=== PATIENT | male | born 1960 | race Caucasian/White ===

== ENCOUNTER 2019-05-12 09:01 | Emergency (ER) | payer OTHER, SELFPAY ==
[2019-05-12 09:19] VITALS: BP 155/89; PULSE 77; RESP 16; TEMP 36.2; O2SAT 100; BMI 31.5
--- NOTE | 2019-05-12 09:47 | ED.HA ---
HPI - Headache General Chief Complaint: Headache Stated Complaint: headache on right caodaism area/nausea x2 days Time Seen by Provider: 05/12/19 09:32 Mode of arrival: Ambulatory Limitations: no limitations History of Present Illness HPI Narrative: 58-year-old male former smoker with a history of hypertension presents with a sudden onset right-sided headache for the past 2 days. He states it is worse with bright lights and loud noises. He denies any significant history of headaches but did have a subarachnoid hemorrhage about 20 years ago. Patient denies any recent injury. He has no neck pain and denies other neurologic symptoms such as trouble with speech, numbness, tingling or weakness. He does state that there is an episode of some blurred vision in the lower right quadrant of his vision in his right eye. MD Complaint: headache Onset (ago): day(s) Onset description: sudden Location: right Severity: moderate Quality: aching and throbbing Exacerbating factors: none, light and noise Associated symptoms: photophobia and vision loss Treatments prior to arrival: none Related Data Home Medications Medication Instructions Recorded Confirmed lisinopril 40 mg PO DAILY 05/12/19 05/12/19 Previous Rx's Medication Instructions Recorded prednisone 10 mg PO DAILY #40 tab 05/12/19 Allergies Allergy/AdvReac Type Severity Reaction Status Date / Time No Known Drug Allergies Allergy Verified 05/12/19 12:38 Review of Systems Constitutional Constitutional: Denies chills, Denies fatigue, Denies fever(s), Denies frequent falls, Reports headache(s), Denies lethargy and Denies weakness Eyes Eyes: Denies change in vision, Denies eye discharge, Denies irritation and Reports loss of vision ENT Ears, Nose, Mouth, and Throat: Denies change in voice, Denies dizziness, Reports headache(s), Denies neck pain, Denies sore throat and Denies throat swelling Cardiovascular Cardiovascular: Denies chest pain, Denies irregular heart rhythm, Denies lightheadedness, Denies palpitations, Denies dyspnea, Denies dyspnea on exertion and Denies orthopnea Respiratory Respiratory: Denies cough, Denies dyspnea, Denies dyspnea on exertion and Denies wheezing Gastrointestinal Gastrointestinal: Denies abdominal pain, Denies change in bowel habits, Denies diarrhea, Denies nausea and Denies vomiting Genitourinary Genitourinary: Denies hematuria, Denies flank pain, Denies urinary incontinence and Denies urinary urgency Musculoskeletal Musculoskeletal: Denies back pain, Denies muscle weakness, Denies neck pain, Denies numbness and Denies tingling Integumentary/Breasts Skin/Breast: Denies pruritus, Denies erythema, Denies rash and Denies wounds Neurologic Neurologic: Denies behavioral changes, Denies confusion, Denies dizziness, Denies frequent falls, Reports headache(s), Reports loss of vision, Denies numbness, Denies tingling and Denies weakness Psychiatric Psychiatric: Denies anxiety, Denies behavioral changes, Denies confusion, Denies depression, Denies homicidal ideation and Denies suicidal ideation Endocrine Endocrine: Denies fatigue, Denies flushing and Denies palpitations Hematologic/Lymphatic Hematologic/Lymphatic: Denies easy bruising Allergic/Immunologic Allergic/Immunologic: Denies urticaria, Denies throat swelling and Denies wheezing PFSH Social History Smoking Status: Former smoker Social History Smoking Status: Former smoker Exam Narrative Exam Narrative: GENERAL: [58] year old patient appears stated age. Well-nourished, well-developed patient, in mild distress. HEAD: Right caodaism tender to palpate Atraumatic. Normocephalic. EYES: Pupils equal round and reactive. Extraocular motions intact. No scleral icterus. No injection or drainage. Pressure with tonopen is 20mmHg ENT: Nose without bleeding, purulent drainage. Throat without erythema, tonsillar hypertrophy or exudate. Airway patent. NECK: Trachea midline. Non tender CARDIOVASCULAR: Regular rate and rhythm without murmurs, gallops, or rubs. RESPIRATORY: Clear to auscultation. Breath sounds equal bilaterally. No wheezes, rales, or rhonchi. GASTROINTESTINAL: Abdomen soft, non-tender, nondistended. EXTREMITIES: No edema or joint tenderness. BACK: Nontender without deformity or crepitance. No flank tenderness. NEURO: AOx3. SKIN: No rash or erythema of visible areas Initial Vital Signs Initial Vital Signs: Vital Signs Temperature 97.1 F L 05/12/19 09:19 Pulse Rate 77 05/12/19 09:19 Respiratory Rate 16 05/12/19 09:19 Blood Pressure 155/89 H 05/12/19 09:19 Pulse Oximetry 100 05/12/19 09:19 Course Orders Ordered: ED Orders 05/12/19 10:53 CT head/brain wo con Stat 05/12/19 11:00 Basic Metabolic Panel Stat C-Reactive Protein Quant Stat Complete Blood Count AUTO DIFF Stat Erythrocyte Sedimentation Rate Stat Discontinued Medications Dexamethasone (Decadron) 10 mg IV NOW ONE Stop: 05/12/19 10:54 Last Admin: 05/12/19 11:09 Dose: 10 mg Documented by: CHRIST Sodium Chloride (Normal Saline 0.9%) 1,000 mls @ 1,000 mls/hr IV BOLUS ONE Stop: 05/12/19 11:52 Last Infusion: 05/12/19 12:19 Dose: 0 mls/hr Documented by: Admin: 05/12/19 11:09 Dose: 1,000 mls/hr Documented by: CHRIST Prochlorperazine (Compazine) 10 mg IV NOW ONE Stop: 05/12/19 10:54 Last Admin: 05/12/19 11:09 Dose: 10 mg Documented by: CHRIST Proparacaine HCl (Parcaine 0.5% Ophth Racheal) 1 drops EYE-RIGHT NOW ONE Stop: 05/12/19 12:10 Last Admin: 05/12/19 12:33 Dose: 3 drop Documented by: CHRIST Reevaluation(s) Reevaluation #1: near complete resolution of symptoms after the above state therapies Consultations Consultation #1: call to Dr. Tillman regarding close follow up, he is happy to see the patient and requests that we send him right over. Consultation #2: call to Dr. Morales to discuss biopsy. He requests follow up with office Vital Signs Vital signs: Vital Signs - 8 hr 05/12/19 12:09 05/12/19 12:46 Pulse Rate 84 71 Respiratory Rate 17 15 Blood Pressure 137/56 L Blood Pressure [Left Arm] 148/86 H Pulse Oximetry 97 100 MDM - Headache Lab Data Result diagrams: 05/12/19 11:00 05/12/19 11:00 Labs: Lab Results 05/12/19 05/12/19 05/12/19 Range/Units 11:00 11:00 11:00 WBC 8.8 (4.5-11.0) X10^3/uL RBC 4.55 (4.5-5.9) X10^6/uL Hgb 13.8 (13.5-17.5) g/dL Hct 40.8 L (41-53) % MCV 89.8 (80-100) fL MCH 30.4 (26-34) PG MCHC 33.9 (30-36) % RDW 14.0 (11.6-14.8) % Plt Count 315 (150-400) X10^3/uL Neut % (Auto) 56.7 (50-75) % Lymph % (Auto) 30.8 (25-40) % [place] % (Auto) 8.6 (3-14) % Eos % (Auto) 2.7 (2-4) % Baso % (Auto) 1.2 (0-2) % Neut # (Auto) 5000 (1733-1361) /uL Lymph # (Auto) 2700 (3061-4654) /uL [place] # (Auto) 800 (0-900) /uL Eos # (Auto) 200 (0-450) /uL Baso # (Auto) 100 (0-100) /uL ESR 55 H (0-15) MM/HR Sodium (137-145) mmol/L Potassium (3.4-5.1) mmol/L Chloride (98-107) mmol/L Carbon Dioxide (22-32) mmol/L BUN (9-20) mg/dL Creatinine (0.66-1.25) mg/dL Estimated GFR (>60) mL/min BUN/Creatinine Ratio (6-22) Glucose (70-100) mg/dL Calcium (8.4-10.2) mg/dL C-Reactive Protein 2.1 H (<1.0) mg/dL 05/12/19 Range/Units 11:00 WBC (4.5-11.0) X10^3/uL RBC (4.5-5.9) X10^6/uL Hgb (13.5-17.5) g/dL Hct (41-53) % MCV (80-100) fL MCH (26-34) PG MCHC (30-36) % RDW (11.6-14.8) % Plt Count (150-400) X10^3/uL Neut % (Auto) (50-75) % Lymph % (Auto) (25-40) % [place] % (Auto) (3-14) % Eos % (Auto) (2-4) % Baso % (Auto) (0-2) % Neut # (Auto) (2015-1337) /uL Lymph # (Auto) (4543-8488) /uL [place] # (Auto) (0-900) /uL Eos # (Auto) (0-450) /uL Baso # (Auto) (0-100) /uL ESR (0-15) MM/HR Sodium 140 (137-145) mmol/L Potassium 4.8 (3.4-5.1) mmol/L Chloride 107 (98-107) mmol/L Carbon Dioxide 24 (22-32) mmol/L BUN 23 H (9-20) mg/dL Creatinine 1.20 (0.66-1.25) mg/dL Estimated GFR > 60.0 (>60) mL/min BUN/Creatinine Ratio 19.2 (6-22) Glucose 93 (70-100) mg/dL Calcium 10.1 (8.4-10.2) mg/dL C-Reactive Protein (<1.0) mg/dL Imaging Data CT scan - head: Radiologist's impression: [place] [address] CT Scan Report Signed Patient: Kasia Siddiqui EMR#: [id number] : 2Acct:[id number] Age/Sex: 58 / MDate of Service: 05/12/19 Loc: ED Accession Number: [id number] Procedure: CT head/brain wo con Ordering Provider: Jermaine David D.O. PROCEDURE: CT HEAD/BRAIN WO CON INDICATIONS: worst GUARDADO, history of SAH TECHNIQUE: Noncontrast 4.5 mm thick angled axial sections acquired from the foramen magnum to the vertex, with coronal and sagittal reformats. For radiation dose reduction, the following was used: automated exposure control, adjustment of mA and/or kV according to patient size. COMPARISON: None. FINDINGS: Image quality: Excellent. CSF spaces: Basal cisterns are patent. No extra-axial fluid collections. Ventricles are normal in size and shape. Brain: No midline shift. No intracranial masses or hemorrhage. Larson-white matter interface is normal. Skull and face: Calvarium and visualized facial bones are intact, without suspicious lesions. Sinuses: Visualized sinuses and mastoids are clear. IMPRESSION: No acute intracranial abnormality. Dictated by: Marce Spencer M.D. on 05/12/2019 at 11:20 Approved by: Marce Spencer M.D. on 05/12/2019 at 11:21 Discharge Plan Departure Patient Disposition: Home Clinical Impression: GCA (giant cell arteritis) Headache Qualifiers: Headache type: other headache syndrome Qualified Code(s): G44.89 - Other headache syndrome Discharge Date/Time: 05/12/19 12:56 Instructions: Giant Cell Arteritis Activity Restrictions/Additional Instructions: *You have been diagnosed with [ acute headache ] *What to do: *Take medications as directed *Please proceed directly to [facility] as Dr. Tillman is expecting you. Also, please call [facility] today and let them know we want you to be seen in follow up. You will need a biopsy of your temporal artery to confirm the diagnosis. This appointment should be within the next few days *Return to ER if you should have any new, worsening or concerning symptoms, worsening pain, vision change or other bothersome symptoms Prescriptions: New prednisone 10 mg tablet 10 mg PO DAILY Qty: 40 RF: 0 No Action lisinopril 40 mg Tablet 40 mg PO DAILY RF: 0 Referrals: Reyes Tillman MD [Physician] - Martín Gomez MD [Physician] -
--- NOTE | 2019-05-12 10:53 | DI.CT.S_ITS ---
PROCEDURE: CT HEAD/BRAIN WO CON INDICATIONS: worst GUARDADO, history of SAH TECHNIQUE: Noncontrast 4.5 mm thick angled axial sections acquired from the foramen magnum to the vertex, with coronal and sagittal reformats. For radiation dose reduction, the following was used: automated exposure control, adjustment of mA and/or kV according to patient size. COMPARISON: None. FINDINGS: Image quality: Excellent. CSF spaces: Basal cisterns are patent. No extra-axial fluid collections. Ventricles are normal in size and shape. Brain: No midline shift. No intracranial masses or hemorrhage. Larson-white matter interface is normal. Skull and face: Calvarium and visualized facial bones are intact, without suspicious lesions. Sinuses: Visualized sinuses and mastoids are clear. IMPRESSION: No acute intracranial abnormality. Dictated by: Marce Spencer M.D. on 05/12/2019 at 11:20 Approved by: Marce Spencer M.D. on 05/12/2019 at 11:21
[2019-05-12] MEDS: DEXAMETHASONE 10 MG/ML VIAL IV (11:09)
[2019-05-12] MEDS: PROCHLORPERAZINE 10 MG/2 ML VIAL IV (11:09)
[2019-05-12] MEDS: SODIUM CHLORIDE 0.9% 1,000 ML 1000 ML IV (11:09)
[2019-05-12 11:13] LABS: Add Manual Diff / Slide Review NO; Basophils Absolute Auto 100 /uL (0-100); Basophils Percent Auto 1.2 % (0-2); Eosinophils Absolute Auto 200 /uL (0-450); Eosinophils Percent Auto 2.7 % (2-4); Hematocrit 40.8 % (41-53); Hemoglobin 13.8 g/dL (13.5-17.5); Lymphocytes Absolute Auto 2700 /uL (1100-4500); Lymphocytes Percent Auto 30.8 % (25-40); Mean Corpuscular HGB Conc 33.9 % (30-36); Mean Corpuscular Hemoglobin 30.4 PG (26-34); Mean Corpuscular Volume 89.8 fL (80-100); Monocytes Absolute Auto 800 /uL (0-900); Monocytes Percent Auto 8.6 % (3-14); Neutrophils Absolute Auto 5000 /uL (1500-7000); Neutrophils Percent Auto 56.7 % (50-75); Platelet Count 315 X10^3/uL (150-400); Red Blood Cell Count 4.55 X10^6/uL (4.5-5.9); White Blood Cell Count 8.8 X10^3/uL (4.5-11.0)
[2019-05-12 11:22] LABS: BUN Creatinine Ratio 19.2 (6-22); Blood Urea Nitrogen 23 mg/dL (9-20); Calcium 10.1 mg/dL (8.4-10.2); Carbon Dioxide 24 mmol/L (22-32); Chloride 107 mmol/L (98-107); Estimated Glomerular Filt Rate > 60.0 mL/min (>60); Glucose 93 mg/dL (70-100); HEMOLYSIS < 15 (0-50); Potassium 4.8 mmol/L (3.4-5.1); Sodium 140 mmol/L (137-145)
[2019-05-12 11:26] LABS: C-Reactive Protein Quant 2.1 mg/dL (<1.0)
[2019-05-12 11:31] LABS: Erythrocyte Sedimentation Rate 55 MM/HR (0-15)
[2019-05-12 12:09] VITALS: BP 148/86; PULSE 84; RESP 17; O2SAT 97
[2019-05-12] MEDS: PROPARACAINE 0.5% OPHTH SOL 1 DROPS EYE-RIGHT (12:33)
[2019-05-12 12:46] VITALS: BP 137/56; PULSE 71; RESP 15; O2SAT 100
== END 2019-05-12 12:56 | disposition home or self-care (01) ==
PROVIDERS: Emergency Provider Emergency Medicine
DX: M31.6 Other giant cell arteritis (principal); G44.89 Other headache syndrome
CPT/HCPCS: 36415; 70450; 80048; 85025; 85651; 86140; 96361; 96374; 96375; 99283; 99284; J0780; J1100